=== PATIENT | male | born 1985 | race Hispanic/Latino ===

== ENCOUNTER 2022-04-30 21:17 | Emergency (ER) | payer OTHER ==
[2022-04-30] MEDS ORDERED: Proparacaine 0.5% Opth 15 ML BOT ONE (21:39)
[2022-04-30] MEDS ORDERED: Fluorescein Opthalmic Strip ONE (21:39)
== END 2022-04-30 22:29 | disposition home or self-care (01) ==
LOC: ERS 21:17
DX: S05.02XA Injury of conjunctiva and corneal abrasion without foreign body, left eye, initial encounter (principal); F17.210 Nicotine dependence, cigarettes, uncomplicated; W22.8XXA Striking against or struck by other objects, initial encounter; Y99.0 Civilian activity done for income or pay
CPT/HCPCS: 99283